=== PATIENT | female | born 1935 | race Asian ===

== ENCOUNTER → 2016-10-27 | Outpatient (CLI) | payer OTHER, MEDICAID ==
[~2016-10-27] MED LIST: ALLOPURINOL PO; ASA3 PO; ATOR10TA84 PO; GLIP10TA9 PO; HYDR25TA PO; INSLAN SQ; ISOS60TA4 PO; LEVO125T11 PO; LOSA100T29 PO; METO-323 PO; METO-325 PO; SITA100 PO
== END | disposition home or self-care (01) ==
LOC: RADPV 09:57
PROVIDERS: ATTEND Internal Medicine Nephrology
DX: N18.3 Chronic kidney disease, stage 3 (moderate) (principal); N28.1 Cyst of kidney, acquired
CPT/HCPCS: 76770

== ENCOUNTER → 2017-04-16 | Outpatient (CLI) | payer OTHER, MEDICAID ==
[~2017-04-16] MED LIST changes: -ASA3 PO; +ASPI-989 PO; -METO-323 PO; -METO-325 PO; +METO-391 PO; +METO-408 PO
== END | disposition home or self-care (01) ==
LOC: RADPV 08:58
PROVIDERS: ATTEND Internal Medicine
DX: I70.0 Atherosclerosis of aorta (principal); M47.814 Spondylosis without myelopathy or radiculopathy, thoracic region
CPT/HCPCS: 71020